=== PATIENT | female | born 1950 | race African-American/Black ===

== ENCOUNTER 2016-12-08 16:32 | Emergency (ER) | payer OTHER ==
[~2016-12-08] VITALS: Ht 165.1 cm; Wt 90.7 kg
[2016-12-08] MEDS ORDERED: NORCO 5-325 TA1 EACH PO (16:44)
[2016-12-08] MEDS ORDERED: PROVENTIL HFA6.7 G1 INH (16:44)
[2016-12-08] MEDS ORDERED: CATAPRES0.2 MG PO (17:39)
[2016-12-08] MEDS ORDERED: ZOFRAN ODT4 MG PO (17:41)
[2016-12-08 17:56] VITALS: BP 170/89
== END 2016-12-08 17:57 | disposition home or self-care (01) ==
LOC: ER 16:32
DX: S16.1XXA Strain of muscle, fascia and tendon at neck level, initial encounter (principal); M54.5 Low back pain; M54.6 Pain in thoracic spine; I10 Essential (primary) hypertension; M79.7 Fibromyalgia; D86.9 Sarcoidosis, unspecified; Z91.14 Patient's other noncompliance with medication regimen; Z88.5 Allergy status to narcotic agent; Z88.8 Allergy status to other drugs, medicaments and biological substances